=== PATIENT | female | born 1995 | race Native Hawaiian/Other Pacific Islander ===

== ENCOUNTER → 2019-03-24 14:41 | Outpatient (CLI) | payer OTHER, SELFPAY ==
[2019-03-25 12:20] LABS: Strep Grp B PCR POS for Grp B Strep
== END ==
PROVIDERS: PCP General Practice; Visit Provider Family Medicine
DX: Z34.03 Encounter for supervision of normal first pregnancy, third trimester (principal); Z3A.36 36 weeks gestation of pregnancy
CPT/HCPCS: 87653

== ENCOUNTER 2019-04-18 06:43 | Inpatient (IN) | payer OTHER, SELFPAY ==
[2019-04-18 07:15] VITALS: BP 138/81
[2019-04-18] MEDS: PENICILLIN G POTASSIUM 5,000,000 UNIT in DEXTROSE 5% IN WATER 250 ML IV (07:25)
[2019-04-18 07:35] LABS: Add Manual Diff / Slide Review NO; Basophils Absolute Auto 0 /uL (0-100); Basophils Percent Auto 0.3 % (0-2); Eosinophils Absolute Auto 200 /uL (0-450); Eosinophils Percent Auto 1.5 % (2-4); Hematocrit 37.8 % (36-46); Hemoglobin 12.7 g/dL (12.0-16.0); Lymphocytes Absolute Auto 2000 /uL (1100-4500); Lymphocytes Percent Auto 15.7 % (25-40); Mean Corpuscular HGB Conc 33.7 % (30-36); Mean Corpuscular Hemoglobin 29.5 PG (26-34); Mean Corpuscular Volume 87.6 fL (80-100); Monocytes Absolute Auto 1000 /uL (0-900); Monocytes Percent Auto 7.9 % (3-14); Neutrophils Absolute Auto 9600 /uL (1500-7000); Neutrophils Percent Auto 74.6 % (50-75); Platelet Count 191 X10^3/uL (150-400); Red Blood Cell Count 4.32 X10^6/uL (4.0-5.2); Red Cell Distribution Width 14.3 % (11.6-14.8); White Blood Cell Count 12.8 X10^3/uL (4.5-11.0)
[2019-04-18] MEDS: LACTATED RINGERS 1,000 ML 100 ML IV ×2 (07:50→08:48)
--- NOTE | 2019-04-18 09:14 | P.HP_ITS ---
History of Present Illness History of Present Illness Date Patient Seen: 04/18/19 Time Patient Seen: 09:14 Chief complaint: LABOR Narrative: Patient is a 23-year-old female G1 para 0 with an estimated due date of 02/2020 which which were at 40 weeks and 1 day gestational age. Patient states last evening she began to have mild to moderate contractions. The cont ractions continued throughout the night. And this morning they were every 4-5 minutes apart becoming stronger. Patient presented to the labor and delivery floor. Patient states she has been feeling well. No fevers chills headaches blurry vision nausea or vomiting. She has not had any leaking of fluid. Patient has had mild spots of blood. On arrival to the Center. She was jaime regularly heart tones were category 1 vital signs were stable and she was afebrile. On examination of the cervix she was found to be 6 cm to dilated with an intact bulging bag. care specific problems she was a late transfer of care at 35 weeks from the [facility]. Otherwise an unremarkable . She has had a total of approximately at 38 lb of weight gain. Vital signs have been stable throughout. Patient was taking vitamins and no other medication during the . Patient has no known drug allergies. Patient has a medical history of asthma and headaches. Social history she lives with a partner she is a nonsmoker nondrinker denies any illicit drugs. blood work hemoglobin hematocrit 12.220 week ultrasound shows normal anatomy screen urinalysis is negative hep B negative hep C negative rubella immune VDRL immune blood type is O-positive antibody screen is negative GC chlamydia negative GBS status is positive. Patient History Family & Social History Social History: household members spouse Tobacco & Substance use: Smoking Status Never smoker Meds Home Medications and Allergies Home Medications Medication Instructions Recorded Confirmed Type albuterol sulfate 90 mcg/actuation 1 inhalation INHALATION PRN PRN 03/16/19 04/18/19 History breath activated powder inhaler Allergies Allergy/AdvReac Type Severity Reaction Status Date / Time No Known Drug Allergies Allergy Verified 04/14/19 12:21 Exam Vital Signs (past 8 hours): - 04/18/19 07:15 Blood Pressure 138/81 Narrative Exam Narrative: . General: Alert no apparent distress. Affect is appropriate. Jaime it is uncomfortable. HEENT: Neck is supple without lymphadenopathy pupils equal round and reactive. Cardio: S1-S2 regular rate and rhythm. Respiratory: Lungs clear to auscultation. Abdomen: Gravid. Extremities: Normal deep tendon reflexes trace edema. : Cervical exam shows 8 cm 90% effaced 0+ 1 station had a well engaged. Bulging bag membranes were ruptured with clear fluid. [place]: Jaime regularly every 3-5 minutes with 60 minute contractions moderate and strength. heart tones: Category 1. Heart rate 130 Objective Labs Result Diagrams: 04/18/19 07:10 Labs: Laboratory Results - last 24 hr 04/18/19 04/18/19 07:10 07:10 WBC 12.8 H RBC 4.32 Hgb 12.7 Hct 37.8 MCV 87.6 MCH 29.5 MCHC 33.7 RDW 14.3 Plt Count 191 Neut % (Auto) 74.6 Lymph % (Auto) 15.7 L [place] % (Auto) 7.9 Eos % (Auto) 1.5 L Baso % (Auto) 0.3 Neut # (Auto) 9600 H Lymph # (Auto) 2000 [place] # (Auto) 1000 H Eos # (Auto) 200 Baso # (Auto) 0 Blood Type O Positive Antibody Screen Negative Assessment & Plan Assessment & Plan narrative: 23-year-old female G1 para 0 at 40 weeks gestational age in active labor. Inpatient orders were written for. Patient is GBS status positive she was given penicillin for IV. Patient is requesting epidural which was provided for patient today. Hemoglobin and hematocrit and type and screen will be drawn. Patient will be provided epidural with IV fluids before hand. Monitor closely vital signs temperature and monitor baby's heart rate as per protocol. On my exam patient had bulging bag an 8 cm and she was ruptured with clear fluid. Vital signs have been stable category 1 during this 1st stage of labor. All questions were answered with patient and partner and family who is at the bedside. Expectant management is continued. All consents were signed and obtained.
[2019-04-18] MEDS: PENICILLIN G POTASSIUM 3,000,000 UNIT/50 ML FROZ.PIGGY 100 UNIT IV (11:09)
--- NOTE | 2019-04-18 11:53 | PM.OBPNLAB ---
Date/Time Date Patient Seen: 04/18/19 Time Patient Seen: 11:53 Pain Control Pain control: tolerating well and epidural Pelvic Exam Dilation (cm): 10 station: +1 Amniotic membrane status: Leaking Contractions Contractions on admission: regular Monitor mode: External Contraction pattern: Regular Contraction phase: Resting Contraction intensity: Strong/Firm Status status: Category l Heart Rate Baseline: 135 Assessment and Plan Assessment: active labor Plan: continuous present management
--- NOTE | 2019-04-18 12:31 | PM.PROC.1 ---
Procedures Date/Time Date of procedure: 04/18/19 Time of procedure: 12:31 General Procedure description: Vaginal delivery of viable male Stage I of labor approximately 8 hours. Patient presented in labor and delivery floor in active labor with normal vital signs no rupture of membranes on admission heart tones were category 1. Cervical exam showed 6 cm dilated with intact membranes. Intrapartum care arteries were initiated. IV was started and blood work was taking. Epidural anesthesia was then provided at patient's request. During stage I of labor heart tracings were category 1 category 2. Vital signs were stable throughout. Mom received no Pitocin she had regular routine contractions and progressed well during this time frame. She had rupture of membranes at approximately 9 cm with clear amniotic fluid. Mom had positive GBS status and was given 1 course of IV penicillin. Stage II of labor approximately 45 minutes. Patient delivered over intact perineum a viable male infant in the occiput posterior position. During stage II of labor heart tracing were category 1 and category 2. Patient had good descent through the canal. Mom pushed well with adequate epidural anesthesia. At the delivery of the head that was 1 loose nuchal cord which was easily reduced. Baby was delivered onto the mother's abdomen and had spontaneous cry mouth and nose was then bulb suctioned. Mom was given IM Pitocin 10 units. Afterwards on massage of the uterus the fundus was firm and had VATS vaginal bleeding which was mild. Stage III of labor less than 10 minutes. Delivery of intact placenta with three-vessel cord. Repair of small midline first-degree with the 2 0 Vicryl stitch in the usual fashion. Patient tolerated the procedure well. After inspection of the vagina and cervix showed no lacerations. Uterus was firm. Baby and mom resting comfortably.
[2019-04-18] MEDS: OXYTOCIN 10 UNIT/ML VIAL IM (14:22)
[2019-04-18] MEDS: IBUPROFEN 600 MG TABLET PO ×2 (14:23→20:29)
[2019-04-19] MEDS: IBUPROFEN 600 MG TABLET PO ×3 (02:28→14:39)
--- NOTE | 2019-04-19 07:36 | P.DS_ITS ---
History of Present Illness History of Present Illness Chief complaint: LABOR Narrative: Patient is a 23-year-old female G1 para 0 with an estimated due date of 02/2020 which which were at 40 weeks and 1 day gestational age. Patient states last evening she began to have mild to moderate contractions. The contr actions continued throughout the night. And this morning they were every 4-5 minutes apart becoming stronger. Patient presented to the labor and delivery floor. Patient states she has been feeling well. No fevers chills headaches blurry vision nausea or vomiting. She has not had any leaking of fluid. Patient has had mild spots of blood. On arrival to the Center. She was jaime regularly heart tones were category 1 vital signs were stable and she was afebrile. On examination of the cervix she was found to be 6 cm to dilated with an intact bulging bag. care specific problems she was a late transfer of care at [facility] weeks [facility]. Otherwise an unremarkable . She has had a total of approximately at 38 lb of weight gain. Vital signs have been stable throughout. Patient was taking vitamins and no other medication during the . Patient has no known drug allergies. Patient has a medical history of asthma and headaches. Social history she lives with a partner she is a nonsmoker nondrinker denies any illicit drugs. blood work hemoglobin hematocrit 12.220 week ultrasound shows normal anatomy screen urinalysis is negative hep B negative hep C negative rubella immune VDRL immune blood type is O-positive antibody screen is negative GC chlamydia negative GBS status is positive. Discharge Providers Provider Date of admission: 04/18/19 06:43 Discharge Date: 04/19/19 Primary care physician: Moody Frank MD Consults: 04/19/19 12:35 Consult to Dynamic[facility] Routine Comment: Discharge provider: Freddie Larsen MD Summary Hospital Course Discharge Diagnosis: G1 para 1 40 week gestational age with vaginal delivery Hospital Course: On routine course. The time of discharge vital signs are stable afebrile. Bleeding was as expected. Pain was well controlled with ibuprofen. Urination without difficulty. Mild swelling. Patient was provided prescription for ibuprofen and vitamins. Post discharge instructions were reviewed with mom Exam Narrative Exam Narrative: General: Alert no apparent distress. Affect is appropriate. Jaime it is uncomfortable. HEENT: Neck is supple without lymphadenopathy pupils equal round and reactive. Cardio: S1-S2 regular rate and rhythm. Respiratory: Lungs clear to auscultation. Abdomen: Uterus firm. Incision clean dry and intact. Extremities: Normal deep tendon reflexes trace edema. Objective Labs Result Diagrams: 04/18/19 07:10 Labs: Laboratory Results - last 24 hr 04/18/19 04/18/19 07:10 07:10 WBC 12.8 H RBC 4.32 Hgb 12.7 Hct 37.8 MCV 87.6 MCH 29.5 MCHC 33.7 RDW 14.3 Plt Count 191 Neut % (Auto) 74.6 Lymph % (Auto) 15.7 L [place] % (Auto) 7.9 Eos % (Auto) 1.5 L Baso % (Auto) 0.3 Neut # (Auto) 9600 H Lymph # (Auto) 2000 [place] # (Auto) 1000 H Eos # (Auto) 200 Baso # (Auto) 0 Blood Type O Positive Antibody Screen Negative Discharge Plan Discharge Plan Patient Disposition: Home Discharge comment: Follow-up at 6 weeks for check control. Discharge orders & Medications Prescriptions: New docusate sodium [DOK] 100 mg Capsule 100 mg PO DAILY Qty: 30 RF: 0 ibuprofen 600 mg Tablet 600 mg PO Q6HR PRN (Reason: Pain, Mild (1-3)) Qty: 30 RF: 0 Prenatabs Rx 29 mg iron- 1 mg Tablet 1 tab PO DAILY Qty: 90 RF: 0 Continued albuterol sulfate 90 mcg/actuation aerosol powdr breath activated 1 inhalation INHALATION PRN PRN (Reason: sob) RF: 0 Follow up/Referrals: Moody Frank MD [Primary Care Provider] - Visit Report/Discharge Packet Visit Report Forms: Patient Portal/API, Stroke Signs & Symptoms Discharge Data Primary Care Provider: Moody Frank
[2019-04-19] MEDS: DERMOPLAST SPRAY 20% 60 ML 1 SPRAY TOP (08:40)
[2019-04-19] MEDS: DOCUSATE 100 MG CAPSULE PO (08:40)
[2019-04-19] MEDS: PRENATAL VIT,CALC/IRON/FOLIC 1 TABLET 1 TAB PO (08:40)
[2019-04-19 09:43] LABS: Hematocrit 32.5 % (36-46); Hemoglobin 10.9 g/dL (12.0-16.0)
== END 2019-04-19 15:40 | disposition home or self-care (01) | DRG 807 ==
PROVIDERS: Admitting Provider Family Medicine; PCP General Practice; Visit Provider Family Medicine
DX: O99.824 Streptococcus B carrier state complicating childbirth (principal); O70.0 First degree perineal laceration during delivery; Z37.0 Single live birth; Z3A.40 40 weeks gestation of pregnancy
CPT/HCPCS: 01967; 36415; 59050; 59410; 85014; 85018; 85025; 86850; 86900; 86901; G0379; J2540; J2590

== ENCOUNTER 2019-06-09 09:36 | Emergency (ER) | payer OTHER, SELFPAY ==
[2019-06-09 09:38] VITALS: BP 133/64; PULSE 86; RESP 19; TEMP 36.8; O2SAT 97
--- NOTE | 2019-06-09 10:08 | ED.CHESTPAIN ---
HPI - Chest Pain General Chief Complaint: Chest Pain Stated Complaint: Suspects fractured rib on R side Time Seen by Provider: 06/09/19 09:57 Source: patient Mode of arrival: Ambulatory Limitations: no limitations History of Present Illness HPI narrative: 23-year-old female here for evaluation right upper quadrant/right-sided rib pain. States has been going on for the past couple days. No fevers. Has tried Tylenol for it without any improvement. Does not seem to be associated with eating however does get worse with taking a deep breath and also moving. No rashes. Other than the Tylenol has not tried anything for it. Is 2 months . Is not . No vomiting. Related Data Home Medications Medication Instructions Recorded Confirmed albuterol sulfate 90 mcg/actuation 1 inhalation INHALATION PRN PRN 03/16/19 04/18/19 breath activated powder inhaler Previous Rx's Medication Instructions Recorded docusate sodium 100 mg capsule 100 mg PO DAILY #30 cap 04/22/19 ibuprofen 600 mg tablet 600 mg PO Q6HR PRN #30 tab 04/22/19 vitamin 1 tab PO DAILY #90 tab 04/22/19 no.76-iron,carbonyl 29 mg iron-folic acid 1 mg tablet cyclobenzaprine 10 mg PO TID PRN #12 tab 06/09/19 Allergies Allergy/AdvReac Type Severity Reaction Status Date / Time No Known Drug Allergies Allergy Verified 06/09/19 09:56 Review of Systems Constitutional Constitutional: Denies fever(s) Cardiovascular Cardiovascular: Reports chest pain (Right-sided rib pain) Respiratory Respiratory: Reports pain on inspiration Gastrointestinal Gastrointestinal: Denies abdominal pain, Denies nausea and Denies vomiting Musculoskeletal Musculoskeletal: Denies myalgias and Denies arthralgias Integumentary/Breasts Skin/Breast: Denies lesions and Denies rash Neurologic Neurologic: Denies behavioral changes Psychiatric Psychiatric: Denies behavioral changes Patient History Medical History Anemia (Acute) Social History marital status: household members: spouse pets and animals: Yes (has dog) education level: high school occupational status: employed special odalys needs: No Smoking Status: Never smoker Smoking Status: Never smoker alcohol intake frequency: 0-2 drinks per day Substance Use Type: does not use Exam Initial Vital Signs Initial Vital Signs: Vital Signs Temperature 98.3 F 06/09/19 09:38 Pulse Rate 86 06/09/19 09:38 Respiratory Rate 19 06/09/19 09:38 Blood Pressure 133/64 06/09/19 09:38 Pulse Oximetry 97 06/09/19 09:38 Const General: cooperative, comfortable and well developed Limitations: mental status not altered Chest Chest: No crepitus and tenderness (Right lower ribs) Resp Effort & Inspection: normal respiratory effort Auscultation: clear to auscultation bilaterally Cardio Rate: regular rate Rhythm: regular rhythm GI Inspection: non-distended Palpation: soft, No firm and tender (Right upper quadrant) Skin Lesions: no lesions Rashes: no rashes Neuro General: alert and awake Cognition: normal cognition Speech: speech normal Extrem General: normal to inspection and capillary refill normal Course Orders Ordered: ED Orders 06/09/19 10:10 US abdomen limited Stat XR chest 1V Stat 06/09/19 10:22 Complete Blood Count AUTO DIFF Stat Comprehensive Metabolic Panel Stat Lipase Stat Vital Signs Vital signs: Vital Signs - 8 hr 06/09/19 09:38 Temperature 98.3 F Pulse Rate 86 Respiratory Rate 19 Blood Pressure [Left Arm] 133/64 Pulse Oximetry 97 MDM - Chest Pain Lab Data Attestation: I reviewed the patient's lab results. Result diagrams: 06/09/19 10:22 06/09/19 10:22 Labs: Lab Results 06/09/19 06/09/19 Range/Units 10:22 10:22 WBC 13.0 H (4.5-11.0) X10^3/uL RBC 4.16 (4.0-5.2) X10^6/uL Hgb 12.2 (12.0-16.0) g/dL Hct 35.9 L (36-46) % MCV 86.3 (80-100) fL MCH 29.4 (26-34) PG MCHC 34.0 (30-36) % RDW 13.8 (11.6-14.8) % Plt Count 299 (150-400) X10^3/uL Neut % (Auto) 78.3 H (50-75) % Lymph % (Auto) 12.4 L (25-40) % [place] % (Auto) 6.1 (3-14) % Eos % (Auto) 2.7 (2-4) % Baso % (Auto) 0.5 (0-2) % Neut # (Auto) 36952 H (3580-1419) /uL Lymph # (Auto) 1600 (8940-4410) /uL [place] # (Auto) 800 (0-900) /uL Eos # (Auto) 400 (0-450) /uL Baso # (Auto) 100 (0-100) /uL Sodium 140 (137-145) mmol/L Potassium 3.9 (3.4-5.1) mmol/L Chloride 104 (98-107) mmol/L Carbon Dioxide 25 (22-32) mmol/L BUN 11 (7-17) mg/dL Creatinine 0.80 (0.52-1.04) mg/dL Estimated GFR > 60.0 (>60) mL/min BUN/Creatinine Ratio 13.8 (6-22) Glucose 103 H (70-100) mg/dL Calcium 9.3 (8.4-10.2) mg/dL Total Bilirubin 0.9 (0.2-1.3) mg/dL AST 26 (14-36) IU/L ALT 20 (<35) IU/L Alkaline Phosphatase 65 (38-126) U/L Total Protein 7.8 (6.3-8.2) g/dL Albumin 4.3 (3.5-5.0) g/dL Globulin 3.5 (1.7-4.1) g/dL Albumin/Globulin Ratio 1.2 (1.0-2.8) Lipase 40 (23-300) U/L Imaging Data Chest x-ray: Radiologist's Impression: [place] [address] XRay Report Signed Patient: Siddharth Chaudhary#: [id number] : 1995Acct:[id number] Age/Sex: 23 / FDate of Service: 06/09/19 Loc: ED Accession Number: [id number] Procedure: XR chest 1V Ordering Provider: Navin Lopez D.O. PROCEDURE: XR CHEST 1V INDICATIONS: Right-sided rib pain TECHNIQUE: One view of the chest was acquired. COMPARISON: None. FINDINGS: Surgical changes and devices: None. Lungs and pleura: Lungs are clear. No pleural effusions or pneumothorax. Mediastinum: Mediastinal contours appear normal. Heart size is normal. Bones and chest wall: No suspicious bony lesions. Overlying soft tissues appear unremarkable. IMPRESSION: No acute process. Dictated by: Jerald Wang M.D. on 06/09/2019 at 10:32 Approved by: Jerald Wang M.D. on 06/09/2019 at 10:32 US - abdomen: Radiologist's Impression: [address] [address] Ultrasound Report Signed Patient: Whitney Chaudhary#: [id number] : 1995Acct:[id number] Age/Sex: 23 / FDate of Service: 06/09/19 Loc: ED Accession Number: [id number] Procedure: US abdomen limited Ordering Provider: Navin Lopez D.O. PROCEDURE: US ABDOMEN LIMITED INDICATIONS: RUQ ABDOMINAL PAIN.EVALUATE FOR GALLBLADDER PATHOLOGY TECHNIQUE: Real-time focused scanning was performed of the abdomen, with image documentation. COMPARISON: None. FINDINGS: Liver is normal in size and homogeneous in echotexture. Gallbladder is sonographically normal. No gallstones. No gallbladder wall thickening. No pericholecystic fluid. No sonographic Simmons sign. Biliary tree is non--dilated with common bile duct measuring 3.0 mm. Pancreas is sonographically normal. IMPRESSION: No sonographic evidence of cholelithiasis or cholecystitis. Dictated by: Violeta Carnes MD, PhD on 06/09/2019 at 10:52 Approved by: Violeta Carnes MD, PhD on 06/09/2019 at 10:52 [facility] Narrative Medical decision making narrative: Chest x-ray is unremarkable, right upper quadrant ultrasound unremarkable. Labs are unremarkable except for leukocytosis. Patient has no urinary symptoms. Has a relatively benign exam. I feel we could hold on any a CT scan for now. She is afebrile. Low concern for pneumonia. No indication for antibiotics. No rashes on the skin. Had a discussion with the patient regarding her symptoms. I do suspect that this is a intercostal muscle strain given the fact that is reproducible from the outside and worse with breathing and palpation and movement. Did discuss use of Tylenol and ibuprofen. Patient stated that she is not . Will send home with muscle relaxers as well. She was given return precautions and follow-up instructions. She expressed understanding and agreement. Discharge Plan Departure Patient Disposition: Home Clinical Impression: Acute chest wall pain Instructions: Muscle Strain Activity Restrictions/Additional Instructions: Recommend that you do some light stretching. You can ice the area. You can take Tylenol and/or ibuprofen for any discomfort. You can also use the muscle relaxers however they can make you drowsy. Contact your primary provider for follow-up. Prescriptions: New cyclobenzaprine 10 mg tablet 10 mg PO TID PRN (Reason: muscle spasm) Qty: 12 RF: 0 No Action albuterol sulfate 90 mcg/actuation aerosol powdr breath activated 1 inhalation INHALATION PRN PRN (Reason: sob) RF: 0 docusate sodium [DOK] 100 mg capsule 100 mg PO DAILY Qty: 30 RF: 0 ibuprofen 600 mg tablet 600 mg PO Q6HR PRN (Reason: Pain, Mild (1-3)) Qty: 30 RF: 0 Prenatabs Rx 29 mg iron- 1 mg tablet 1 tab PO DAILY Qty: 90 RF: 0 Referrals: Moody Frank MD [Primary Care Provider] -
[2019-06-09 10:31] LABS: Add Manual Diff / Slide Review NO; Basophils Absolute Auto 100 /uL (0-100); Basophils Percent Auto 0.5 % (0-2); Eosinophils Absolute Auto 400 /uL (0-450); Eosinophils Percent Auto 2.7 % (2-4); Hematocrit 35.9 % (36-46); Hemoglobin 12.2 g/dL (12.0-16.0); Lymphocytes Absolute Auto 1600 /uL (1100-4500); Lymphocytes Percent Auto 12.4 % (25-40); Mean Corpuscular Hemoglobin 29.4 PG (26-34); Mean Corpuscular Volume 86.3 fL (80-100); Monocytes Absolute Auto 800 /uL (0-900); Monocytes Percent Auto 6.1 % (3-14); Neutrophils Absolute Auto 10200 /uL (1500-7000); Neutrophils Percent Auto 78.3 % (50-75); Platelet Count 299 X10^3/uL (150-400); Red Blood Cell Count 4.16 X10^6/uL (4.0-5.2); Red Cell Distribution Width 13.8 % (11.6-14.8)
[2019-06-09 10:48] LABS: Alanine Aminotransferase 20 IU/L (<35); Albumin 4.3 g/dL (3.5-5.0); Albumin Globulin Ratio 1.2 (1.0-2.8); Alkaline Phosphatase 65 U/L (38-126); Aspartate Aminotransferase 26 IU/L (14-36); BUN Creatinine Ratio 13.8 (6-22); Bilirubin Total 0.9 mg/dL (0.2-1.3); Blood Urea Nitrogen 11 mg/dL (7-17); Calcium 9.3 mg/dL (8.4-10.2); Carbon Dioxide 25 mmol/L (22-32); Chloride 104 mmol/L (98-107); Estimated Glomerular Filt Rate > 60.0 mL/min (>60); Globulin 3.5 g/dL (1.7-4.1); Glucose 103 mg/dL (70-100); HEMOLYSIS < 15 (0-50); Lipase 40 U/L (23-300); Potassium 3.9 mmol/L (3.4-5.1); Sodium 140 mmol/L (137-145); Total Protein 7.8 g/dL (6.3-8.2)
[2019-06-09 11:57] VITALS: BP 115/61; PULSE 77; O2SAT 99
== END 2019-06-09 11:59 | disposition home or self-care (01) ==
PROVIDERS: Emergency Provider Emergency Medicine; PCP General Practice
DX: R07.89 Other chest pain (principal); R07.81 Pleurodynia
CPT/HCPCS: 36415; 71045; 76705; 80053; 83690; 85025; 99284